=== PATIENT | male | born 1945 | race Caucasian/White ===

== ENCOUNTER 2018-04-11 19:59 | Emergency (ER) | payer MEDICARE ==
[2018-04-11 20:27] VITALS: BP 135/75
--- NOTE | 2018-04-11 20:38 | UC ---
Back Pain HPI - HPI Summary HPI Summary: low back pain no specific injury---has been needing to use a cane for ambulation - History of Current Complaint Chief Complaint: UCBackPain Stated Complaint: BACK PAIN Time Seen by Provider: 04/11/18 20:36 Hx Obtained From: Patient Onset/Duration: Gradual Onset, Lasting Weeks Timing: Constant Pain Intensity: 8 Pain Scale Used: 0-10 Numeric Back Pain: Is Discrete @ Character: Aching, Throbbing, Spasmodic, Stiffness Aggravating Factor(s): Movement, Lifting, Bending Alleviating Factor(s): Nothing - Allergies/Home Medications Allergies/Adverse Reactions: Allergies Allergy/AdvReac Type Severity Reaction Status Date / Time No Known Allergies Allergy Verified 04/11/18 20:27 Home Medications: Home Medications metFORMIN* [Glucophage 500 MG TAB *] 500 mg PO BID 04/11/18 [History Confirmed 04/11/18] PMH/Surg Hx/FS Hx/Imm Hx Previously Healthy: No Endocrine History: Diabetes, Dyslipidemia - Surgical History Surgical History: Yes Surgery Procedure, Year, and Place: cervical spine; rotator cuff right; cancer nose - Family History Known Family History: Positive: None - Social History Occupation: Retired Lives: With Family Alcohol Use: Weekly Alcohol Amount: 5-7 days per week Substance Use Type: None Smoking Status (MU): Former Smoker Amount Used/How Often: one week per year Review of Systems Constitutional: Negative Skin: Negative Eyes: Negative ENT: Negative Respiratory: Negative Cardiovascular: Negative Gastrointestinal: Negative Genitourinary: Negative Motor: Negative Neurovascular: Negative Musculoskeletal: Arthralgia - lumbar back pain Neurological: Negative Psychological: Negative Is Patient Immunocompromised?: No All Other Systems Reviewed And Are Negative: Yes Physical Exam Triage Information Reviewed: Yes Appearance: Well-Appearing, Well-Nourished, Pain Distress Vital Signs: Initial Vital Signs Temp 97.7 F 04/11/18 20:21 Pulse 54 04/11/18 20:21 Resp 18 04/11/18 20:21 BP 135/75 04/11/18 20:21 Pulse Ox 96 04/11/18 20:21 Vital Signs Reviewed: Yes Eye Exam: Normal Eyes: Positive: Conjunctiva Clear ENT Exam: Normal ENT: Positive: Normal ENT inspection, Hearing grossly normal. Negative: Trismus , Muffled voice, Hoarse voice Dental Exam: Normal Neck exam: Normal Neck: Positive: Supple, Nontender Respiratory Exam: Normal Respiratory: Positive: Chest non-tender, Lungs clear, Normal breath sounds, No respiratory distress, No accessory muscle use Cardiovascular Exam: Normal Cardiovascular: Positive: RRR, Pulses Normal, Brisk Capillary Refill Musculoskeletal Exam: Other Musculoskeletal: Positive: ROM Limited @ - movements at waist Neurological Exam: Normal Neurological: Positive: Alert, Muscle Tone Normal Psychological Exam: Normal Skin Exam: Normal Diagnostics - Radiology No standard instances Xray Interpretation: Positive (See Comments) - Patient Name: JACKIE COFFEY Medical Record#: [id number] Ordering Physician: Chio Kam NP Acct.#: [id number] : 1945 Age: 73 Sex: M Location: [facility] Exam Date: 04/11/182046 ADM Status: REG ER Order Information: SP LUMBARSACRAL 4+ VWS Accession Number: [id number] CPT: 41519 Indication: Back pain. 5 views of lumbar spine are reviewed. The vertebral bodies appear normal in height. Disc space narrowing at L2-L3, L3-L4, L4-L5 and L5-S1 is noted. No fracture is identified. IMPRESSION: Degenerative disc disease at L2-L3, L3-L4, L4-L5 and L5 -S1. < Electronically signed by Lisa Howell MD in [place]> 04/11/182116 Dictated By: Lisa Howell MD Dictated Date/Time: 04/11/182116 Transcribed Date/Time: 04/11/182116 Copy to: CC:Carley Becerril MD; Caden Fenton MD; Chio Kam NP [facility] Urgent [facility] Urgent [facility] [address] [address] ph [phone] ph ([phone] ph ( [phone]) 1 of 1 Radiology Interpretation Completed By: Radiologist Back Pain Course/Dx - Course Course Of Treatment: Nsaids, flexeril, core and low back exercise,,follow with pcp - Differential Dx/Diagnosis Provider Diagnoses: Low back pain, DDD Discharge - Sign-Out/Discharge Documenting (check all that apply): Discharge/Admit/Transfer - Discharge Plan Condition: Stable Disposition: HOME Prescriptions: Cyclobenzaprine TAB* [Flexeril 10 MG TAB*] 10 mg PO TID PRN #20 tab PRN Reason: muscle spasm Naproxen [Naproxen 375 mg tab] 375 mg PO BID PRN #30 tablet PRN Reason: Pain Patient Education Materials: Degenerative Disc Disease (ED), Lower Back Exercises (ED) Referrals: Eliceo MARTINEZ,Caden Prasad [Primary Care Provider] - 2 Days - Billing Disposition and Condition Condition: STABLE Disposition: Home
--- NOTE | 2018-04-11 21:21 | RAD ---
Indication: Back pain. 5 views of lumbar spine are reviewed. The vertebral bodies appear normal in height. Disc space narrowing at L2-L3, L3-L4, L4-L5 and L5-S1 is noted. No fracture is identified. IMPRESSION: Degenerative disc disease at L2-L3, L3-L4, L4-L5 and L5-S1.
[2018-04-11] MEDS ORDERED: Cyclobenzaprine TAB* 10 MG PO ONE (21:33)
== END 2018-04-11 21:50 | disposition home or self-care (01) ==
LOC: UCEAST 19:59
DX: M54.5 Low back pain (principal); M51.36 Other intervertebral disc degeneration, lumbar region; M51.37 Other intervertebral disc degeneration, lumbosacral region; E11.9 Type 2 diabetes mellitus without complications; Z79.84 Long term (current) use of oral hypoglycemic drugs; Z85.828 Personal history of other malignant neoplasm of skin; E78.5 Hyperlipidemia, unspecified
CPT/HCPCS: 72110; 99202; A9270-GY; G0463

== ENCOUNTER 2018-06-27 20:35 | Emergency (ER) | payer MEDICARE ==
[2018-06-27] MEDS ORDERED: Acetaminophen TAB* 325 MG PO ONE (21:08)
[2018-06-27] MEDS ORDERED: NS 0.9% 1000 ML* 1,000 ML IV ONE (21:08)
[2018-06-27 21:34] LABS: ABS Basophils 0 10^3/ul (0-0.2); ABS Eosinophils 0.2 10^3/ul (0-0.6); ABS Lymphocytes 0.4 10^3/ul (1.0-4.8); ABS Monocytes 0.4 10^3/ul (0-0.8); ABS Neutrophils 5.7 10^3/ul (1.5-7.7); ABS Nucleated RBC 0 10^3/ul; Eosinophil % 3.6 % (0-6); Hematocrit 39 % (42-52); Hemoglobin 13.6 g/dl (14.0-18.0); Lymphocyte % 6.5 % (25-47); Mean Corpuscular HGB Conc 35 g/dl (31-36); Mean Corpuscular Hemoglobin 32 pg (27-31); Mean Corpuscular Volume 90 fL (80-94); Mean Platelet Volume 8.6 um3 (7.4-10.4); Nucleated Red Blood Cells % 0.1; Platelet Count 149 10^3/ul (150-450); Red Blood Count 4.32 10^6/ul (4.00-5.40); Red Cell Distribution Width 14 % (10.5-15); White Blood Count 6.9 10^3/ul (3.5-10.8)
[2018-06-27 21:53] LABS: EGFR Non-African American 73.5 (>60)
--- NOTE | 2018-06-27 23:31 | ED ---
HPI Febrile Illness - HPI Summary HPI Summary: Patient complains of sudden onset fever of 104 around 8:30pm. Denies any other symptoms. Patient states he started to feel chills, took his temperature and had a fever. Patient had taken ibuprofen at 7:15 PM for chronic neck pain. Medical history is DM, HDL. - History of Current Complaint Chief Complaint: EDFever Time Seen by Provider: 06/27/18 21:06 Hx Obtained From: Patient, Family/Director Operations Broadcast Onset/Duration: Started Hours Ago Timing: Constant Initial Severity: Mild Current Severity: Mild Pain Intensity: 2 Pain Scale Used: 0-10 Numeric Aggravating Factors: Nothing Alleviating Factors: Nothing Associated Signs and Symptoms: Chills - Allergy/Home Medications Allergies/Adverse Reactions: Allergies Allergy/AdvReac Type Severity Reaction Status Date / Time No Known Allergies Allergy Verified 06/27/18 20:45 PMH/Surg Hx/FS Hx/Imm Hx Endocrine/Hematology History: Reports: Hx Diabetes - type II Cardiovascular History: Reports: Hx Hypertension - Cancer History Cancer Type, 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 - Surgical History Surgery Procedure, Year, and Place: cervical spine; rotator cuff right; cancer nose Infectious Disease History: No Infectious Disease History: Denies: Hx Clostridium Difficile, Hx Hepatitis, Hx Human Immunodeficiency Virus (HIV), Hx of Known/Suspected MRSA, Hx Shingles, Hx Tuberculosis, Hx Known/ Suspected VRE, Hx Known/Suspected VRSA, History Other Infectious Disease, Traveled Outside the [place] in Last 30 Days - Family History Known Family History: Positive: None - Social History Alcohol Use: Weekly Alcohol Amount: 5-7 days per week Substance Use Type: Reports: None Smoking Status (MU): Former Smoker Amount Used/How Often: one week per year Review of Systems Positive: Fever, Chills Eyes: Negative ENT: Negative Cardiovascular: Negative Respiratory: Negative Gastrointestinal: Negative Genitourinary: Negative Musculoskeletal: Negative Skin: Negative Neurological: Negative Psychological: Normal All Other Systems Reviewed And Are Negative: Yes Physical Exam Triage Information Reviewed: Yes Vital Signs On Initial Exam: Initial Vitals Temp Pulse Resp BP Pulse Ox 105.3 F 89 18 119/66 95 06/27/18 20:41 06/27/18 20:41 06/27/18 20:41 06/27/18 20:41 06/27/18 20:41 Vital Signs Reviewed: Yes Appearance: Positive: Well-Appearing Skin: Positive: Warm Head/Face: Positive: Normal Head/Face Inspection Eyes: Positive: Normal Neck: Positive: Supple Respiratory/Lung Sounds: Positive: Clear to Auscultation Cardiovascular: Positive: Normal Abdomen Description: Positive: Nontender Musculoskeletal: Positive: Normal Neurological: Positive: Normal Psychiatric: Positive: Normal AVPU Assessment: Alert - Nate Coma Scale Best Eye Response: 4 - Spontaneous Best Motor Response: 6 - Obeys Commands Best Verbal Response: 5 - Oriented Coma Scale Total: 15 Diagnostics - Vital Signs Vital Signs Temp Pulse Resp BP Pulse Ox 06/27/18 20:41 105.3 F 89 18 119/66 95 - Laboratory Lab Results: Lab Results 06/27/18 06/27/18 Range/Units 21:20 21:20 WBC 6.9 (3.5-10.8) 10^3/ul RBC 4.32 (4.00-5.40) 10^6/ul Hgb 13.6 L (14.0-18.0) g/dl Hct 39 L (42-52) % MCV 90 (80-94) fL MCH 32 H (27-31) pg MCHC 35 (31-36) g/dl RDW 14 (10.5-15) % Plt Count 149 L (150-450) 10^3/ul MPV 8.6 (7.4-10.4) um3 Neut % (Auto) 83.2 H (38-83) % Lymph % (Auto) 6.5 L (25-47) % [place] % (Auto) 6.2 (0-7) % Eos % (Auto) 3.6 (0-6) % Baso % (Auto) 0.5 (0-2) % Absolute Neuts (auto) 5.7 (1.5-7.7) 10^3/ul Absolute Lymphs (auto) 0.4 L (1.0-4.8) 10^3/ul Absolute Monos (auto) 0.4 (0-0.8) 10^3/ul Absolute Eos (auto) 0.2 (0-0.6) 10^3/ul Absolute Basos (auto) 0 (0-0.2) 10^3/ul Absolute Nucleated RBC 0 10^3/ul Nucleated RBC % 0.1 Sodium 136 (135-145) mmol/L Potassium 4.0 (3.5-5.0) mmol/L Chloride 102 (101-111) mmol/L Carbon Dioxide 25 (22-32) mmol/L Anion Gap 9 (2-11) mmol/L BUN 23 (6-24) mg/dL Creatinine 1.00 (0.67-1.17) mg/dL Est GFR ( Amer) 88.9 (>60) Est GFR (Non-Af Amer) 73.5 (>60) BUN/Creatinine Ratio 23.0 H (8-20) Glucose 161 H (70-100) mg/dL Calcium 9.4 (8.6-10.3) mg/dL Total Bilirubin 1.00 (0.2-1.0) mg/dL AST 48 H (13-39) U/L ALT 59 H (7-52) U/L Alkaline Phosphatase 94 (34-104) U/L Total Protein 6.5 (6.4-8.9) g/dL Albumin 3.9 (3.2-5.2) g/dL Globulin 2.6 (2-4) g/dL Albumin/Globulin Ratio 1.5 (1-3) Result Diagrams: 06/27/18 21:20 06/27/18 21:20 Lab Statement: Any lab studies that have been ordered have been reviewed, and results considered in the medical decision making process. Course/Dx - Course Course Of Treatment: Patient complains of sudden onset fever of 104 around 8: 30pm. Denies any other symptoms. Patient states he started to feel chills, took his temperature and had a fever. Patient had taken ibuprofen at 7:15 PM for chronic neck pain. Medical history is DM, HDL. Fever controlled. Mildly diminished platelet count, mildly elevated transaminases. Possible ehrlichiosis. Patient started on doxycycline 100 mg. Rx for doxycycline 100 mg twice a day 7 days. Results of ehrliochis and Lyme disease labs will be called into patient and treatment adjusted accordingly. Follow-up with primary care for extended doxycycline treatment if necessary - Diagnoses Provider Diagnoses: Elevated transaminase level, Fever Discharge - Sign-Out/Discharge Documenting (check all that apply): Patient Departure - Discharge Plan Condition: Stable Disposition: HOME Prescriptions: DOXYcycline CAP(*) [DOXYcycline 100MG CAP(*)] 100 mg PO BID 7 Days #14 cap Patient Education Materials: Lyme Disease (ED) Referrals: Eliceo MARTINEZ,Caden Prasad [Primary Care Provider] - Additional Instructions: Take antibiotics as directed. Follow-up with primary care. - Billing Disposition and Condition Condition: STABLE Disposition: Home
[2018-06-28] MEDS ORDERED: DOXYcycline CAP(*) 100 MG PO ONE (00:44)
[2018-06-28 01:44] VITALS: BP 97/60
== END 2018-06-28 01:00 | disposition home or self-care (01) ==
LOC: ED 20:35
DX: R74.0 Nonspecific elevation of levels of transaminase and lactic acid dehydrogenase [LDH] (principal); R50.9 Fever, unspecified; E11.8 Type 2 diabetes mellitus with unspecified complications; Z87.891 Personal history of nicotine dependence
CPT/HCPCS: 36415; 80053; 85025; 86618; 87040; 87798; 96360; 96361; 99284; A9270-GY

== ENCOUNTER 2018-06-28 22:09 | Emergency (ER) | payer MEDICARE ==
--- NOTE | 2018-06-28 23:52 | ED ---
HPI Febrile Illness - HPI Summary HPI Summary: Pt is a 73 year old M presenting to the ED with complaint of a fever that is jumping up and down tonight. The fever was 102 upon arrival, and is now 106. No major MORATAYA, coughing, CP, vomiting, rashes. Pt had a mild MORATAYA this morning. - History of Current Complaint Chief Complaint: EDFever Time Seen by Provider: 06/28/18 23:42 Hx Obtained From: Patient Onset/Duration: Started Days Ago - yesterday, Still Present Timing: Constant Initial Severity: Moderate Current Severity: Moderate Pain Intensity: 5 Pain Scale Used: 0-10 Numeric - Allergy/Home Medications Allergies/Adverse Reactions: Allergies Allergy/AdvReac Type Severity Reaction Status Date / Time No Known Allergies Allergy Verified 06/28/18 22:19 PMH/Surg Hx/FS Hx/Imm Hx Previously Healthy: No Endocrine/Hematology History: Reports: Hx Diabetes - type II Cardiovascular History: Reports: Hx Hypertension - Cancer History Cancer Type, 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 - Surgical History Surgery Procedure, Year, and Place: cervical spine; rotator cuff right; cancer nose Infectious Disease History: No Infectious Disease History: Denies: Hx Clostridium Difficile, Hx Hepatitis, Hx Human Immunodeficiency Virus (HIV), Hx of Known/Suspected MRSA, Hx Shingles, Hx Tuberculosis, Hx Known/ Suspected VRE, Hx Known/Suspected VRSA, History Other Infectious Disease, Traveled Outside the [place] in Last 30 Days - Family History Known Family History: Positive: None - Social History Lives: With Family Alcohol Use: Weekly Alcohol Amount: 5-7 days per week Substance Use Type: Reports: None Hx Tobacco Use: Yes Smoking Status (MU): Former Smoker Amount Used/How Often: one week per year Review of Systems Positive: Fever Negative: Chest Pain Negative: Cough Negative: Vomiting Negative: Rash Positive: Headache - mild this morning All Other Systems Reviewed And Are Negative: Yes Physical Exam - Summary Physical Exam Summary: Appearance: Well-appearing, Well-nourished, lying in bed comfortable Skin: Warm, dry, no obvious rash Eyes: sclera anicteric, no conjunctival pallor ENT: mucous membranes moist Neck: deferred Respiratory: No signs of respiratory distress Cardiovascular: Appears well perfused, pulses are nml Abdomen: deferred Musculoskeletal: Moving all 4 extremities without obvious discomfort Neurological: Awake and alert, mentation is normal, speech is fluent and appropriate Psychiatric: affect is normal, does not appear anxious or depressed Triage Information Reviewed: Yes Vital Signs On Initial Exam: Initial Vitals Temp Pulse Resp BP Pulse Ox 103.8 F 90 18 138/76 94 06/28/18 22:17 06/28/18 22:17 06/28/18 22:17 06/28/18 22:17 06/28/18 22:17 Vital Signs Reviewed: Yes Diagnostics - Vital Signs Vital Signs Temp Pulse Resp BP Pulse Ox 06/28/18 22:17 103.8 F 90 18 138/76 94 - Laboratory Result Diagrams: 06/29/18 00:05 06/29/18 00:05 Lab Statement: Any lab studies that have been ordered have been reviewed, and results considered in the medical decision making process. Course/Dx - Diagnoses Provider Diagnoses: Fever Discharge - Sign-Out/Discharge Documenting (check all that apply): Patient Departure - Discharge Plan Condition: Good Disposition: HOME Patient Education Materials: Fever in Adults (ED) Referrals: Eliceo MARTINEZ,Caden Prasad [Primary Care Provider] - - Billing Disposition and Condition Condition: GOOD Disposition: Home - Attestation Statements Document Initiated by Scribe: Yes Documenting Scribe: Lakesha Guerra Provider For Whom Scribe is Documenting (Include Credential): Andres Koenig MD. Scribe Attestation: Lakesha Alfaro, cathied for Andres Koenig MD. on 06/30/18 at 1836. Scribe Documentation Reviewed: Yes Provider Attestation: The documentation as recorded by the scribeLakesha accurately reflects the service I personally performed and the decisions made by , Andres Koenig MD. Consult Consult: Andres Koenig MD, spoke with Gui Rose at approximately 2345, patient will be admitted to [facility].
[2018-06-29 00:14] LABS: ABS Basophils 0.1 10^3/ul (0-0.2); ABS Eosinophils 0.2 10^3/ul (0-0.6); ABS Lymphocytes 0.3 10^3/ul (1.0-4.8); ABS Monocytes 0.2 10^3/ul (0-0.8); ABS Neutrophils 4.4 10^3/ul (1.5-7.7); ABS Nucleated RBC 0 10^3/ul; Eosinophil % 4.7 % (0-6); Hematocrit 35 % (42-52); Hemoglobin 12.1 g/dl (14.0-18.0); Lymphocyte % 5.6 % (25-47); Mean Corpuscular HGB Conc 35 g/dl (31-36); Mean Corpuscular Hemoglobin 31 pg (27-31); Mean Corpuscular Volume 89 fL (80-94); Mean Platelet Volume 8.6 um3 (7.4-10.4); Nucleated Red Blood Cells % 0; Platelet Count 127 10^3/ul (150-450); Red Blood Count 3.91 10^6/ul (4.00-5.40); Red Cell Distribution Width 14 % (10.5-15); White Blood Count 5.3 10^3/ul (3.5-10.8)
[2018-06-29 00:33] LABS: EGFR Non-African American 82.9 (>60)
[2018-06-29] MEDS ORDERED: cefTRIAXone VIAL(*) 1,000 MG VIAL ONE (04:43)
[2018-06-29 06:16] VITALS: BP 140/80
== END 2018-06-29 05:05 | disposition home or self-care (01) ==
LOC: ED 22:09
DX: R50.9 Fever, unspecified (principal); R51 Headache; Z87.891 Personal history of nicotine dependence
CPT/HCPCS: 36415; 80053; 85025; 85730; 87040; 99284; J0696

== ENCOUNTER 2019-04-13 15:45 | Emergency (ER) | payer MEDICARE ==
--- NOTE | 2019-04-13 15:59 | UC ---
Lower Extremity/Ankle HPI - HPI Summary HPI Summary: 74 yo male presents accompanied by s/p fall. He tells me that he was working on his boat today around 1100 when he slipped due to water on the dock and fell onto his right thigh and right arm. Did not hit his head or have LOC - witnessed by . He sustained some abrasions that he cleaned and applied band- aids to. Since that time he rested on the couch and applied ice to his leg. He developed some bruising and swelling to the thigh that concerned his who convinced him to come to . His drove and states pt fell asleep on the way here, which was very abnormal for him. Currently he admits feeling tired and dizzy. He is ambulatory with a limp and cane assistance. States that he would not be here unless his made him. Denies headache, SOB, chest pain, abdominal pain, n/v. He takes a daily aspirin and is on plavix for prior cardiac stent placement. - History of Current Complaint Stated Complaint: RT THIGH INJURY Time Seen by Provider: 04/13/19 15:59 Hx Obtained From: Patient Onset/Duration: Sudden Onset Severity Initially: Moderate Severity Currently: Moderate Pain Intensity: 5 Pain Scale Used: 0-10 Numeric - Allergies/Home Medications Allergies/Adverse Reactions: Allergies Allergy/AdvReac Type Severity Reaction Status Date / Time No Known Allergies Allergy Verified 04/13/19 15:59 Home Medications: Home Medications Acetaminophen [Acetaminophen Extra Strength] 1,000 mg PO Q12HR PRN 04/13/19 [ History Confirmed 04/13/19] Atorvastatin* [Lipitor*] 80 mg PO 1700 04/13/19 [History Confirmed 04/13/19] Clopidogrel TAB* [Plavix TAB*] 75 mg PO DAILY 04/13/19 [History Confirmed ] Nitroglycerin TAB 0.4 MG* 0.4 mg SL Q5M PRN 04/13/19 [History Confirmed 04/13/19 ] PMH/Surg Hx/FS Hx/Imm Hx Endocrine History: Diabetes Cardiovascular History: Cardiac Disease, Myocardial Infarction - Surgical History Surgical History: Yes Surgery Procedure, Year, and Place: cervical spine; rotator cuff right; cancer nose - Family History Known Family History: Positive: None - Social History Occupation: Retired Lives: With Family Alcohol Use: Weekly Alcohol Amount: 5-7 days per week Substance Use Type: None Smoking Status (MU): Former Smoker Amount Used/How Often: one week per year Review of Systems All Other Systems Reviewed And Are Negative: Yes Constitutional: Positive: Fatigue Skin: Positive: Other - Abrasion and ecchymosis right thigh Eyes: Positive: Negative ENT: Positive: Negative Respiratory: Positive: Negative Cardiovascular: Positive: Negative Gastrointestinal: Positive: Negative Genitourinary: Positive: Negative Motor: Positive: Negative Neurovascular: Positive: Negative Musculoskeletal: Positive: Other: - Right thigh pain Neurological: Positive: Other - Dizziness Psychological: Positive: Negative Physical Exam - Summary Physical Exam Summary: GENERAL: NAD. WDWN. SKIN: RIGHT THIGH: Superficial abrasion to lateral aspect with mild ecchymosis that is moderately firm and edematous. Right duarte: superficial abrasion - clean appearing. HEENT: Head: AT/NC Eyes: PERRLA. EOM intact. NECK: Supple. Nontender. CHEST: CTAB. No r/r/w. No accessory muscle use. Breathing comfortably and in no distress. CV: RRR. Pulses intact. Brisk cap refill. Pulses intact popliteal and DP/PT b/ l. ABDOMEN: Soft. NTTP. No distention or guarding. Bowel sounds present. No ecchymosis noted. MSK: FROM and 5/5 strength throughout. Mild TTP at lateral right thigh. NEURO: Alert. Sensations intact L3-S1 B/L LEs PSYCH: Age appropriate behavior. Triage Information Reviewed: Yes Vital Signs: Vital Signs: Temp Pulse Resp BP Pulse Ox 98.4 F 71 18 76/54 100 04/13/19 16:02 04/13/19 16:02 04/13/19 16:02 04/13/19 16:02 04/13/19 16:02 Vital Signs Reviewed: Yes Lower Extremity Course/Dx - Course Course Of Treatment: Presenting BP was hypotensive at 76/54 and repeat manual BPs were similar - pt was symptomatic with dizziness and fatigue. At that time I discussed transfer to the ED by ambulance, but pt declined and wished to go home. I discussed with him the risks of this including and worsening condition and he continued to decline. I informed him that I would do an evaluation in the to the best of my ability given the limited resources and he agreed to this. At this time I do not believe his hypotension is related to an internal hemorrhage as he reports only falling onto his right thigh and has a non-distened and non-tender abdomen/flank without ecchymosis. EKbpm NSR. No ST changes as read by Dr. eLster. POC glucose 293. Pt and admit that he "never" checks his sugars except for when the doctor checks them at routine follow ups and he has no idea his average. XR: IMPRESSION: NO EVIDENCE FOR FRACTURE. Upon returning from XR in a wheelchair, pt became diaphoretic, pale, and said he felt lightheaded. He was taken to Room 4 and transported to a stretcher. BP was found to be 90s/60s with a pulse hovering around 40bpm (35bpm-45bpm). He pulse was felt to have an irregularity, thus another EKG was ordered. 2nd EKbpm sinus eve with sinuglar PVC. No ST changes as read by Dr. Lester. Discussed with pt going to the ED at this point and he was agreeable to this. Two IVs were started with NS wide open for symptomatic hypotension and bradycardia. I discussed the case with Trevon VERMA in the ED. EMS arrived around 1700 and were interviewing the pt until departing facility at around 1720. Apparently, upon transferring the pt to EMS stretcher, the EMT noticed an abdominal mass that was thought to be a hernia and asked that I examine the hernia before transfer as pt and with him have never noticed this before. I examined the area and it was NTTP and without ecchymosis or erythema. No pulsatile mass appreciated, but there was an obvious abdominal wall hernia when pt did a 'sit-up' maneuver. EMT asked if [facility] was aware of this and I asked "of the hernia?" and EMT replied "nevermind" and continued their assessment of the pt. I do not believe this resembles an abdominal aortic injury. Called charge nurse Hyun in the ED and informed her of the above. Pt left in stable condition and was more alert. Discharge BP was 99/64 with HR 53 taken by myself. He had no chest pain, SOB, or syncopal episodes while in the . - Differential Dx/Diagnosis Provider Diagnosis: Hypotension, Bradycardia, Fall, Contusion of right thigh Discharge - Sign-Out/Discharge Documenting (check all that apply): Patient Departure All imaging exams completed and their final reports reviewed: Yes - Discharge Plan Condition: Stable Disposition: TRANS HIGHER LVL OF CARE FAC Referrals: Eliceo MARTINEZ,Caden Prasad [Primary Care Provider] - - Billing Disposition and Condition Condition: STABLE Disposition: Trans Higher Lvl of Care Fac
[2019-04-13] MEDS ORDERED: NS 0.9% 1000 ML** 1,000 ML IV ONE ×2 (16:51→17:01)
[2019-04-13 16:59] VITALS: BP 101/66
== END 2019-04-13 17:15 | disposition short-term general hospital (02) ==
LOC: UCEAST 15:45
DX: S70.11XA Contusion of right thigh, initial encounter (principal); W01.0XXA Fall on same level from slipping, tripping and stumbling without subsequent striking against object, initial encounter; Y92.89 Other specified places as the place of occurrence of the external cause; I95.9 Hypotension, unspecified; R00.1 Bradycardia, unspecified; E11.9 Type 2 diabetes mellitus without complications; Z79.02 Long term (current) use of antithrombotics/antiplatelets; Z79.82 Long term (current) use of aspirin; Z95.5 Presence of coronary angioplasty implant and graft; Z87.891 Personal history of nicotine dependence; K80.80 Other cholelithiasis without obstruction; K40.90 Unilateral inguinal hernia, without obstruction or gangrene, not specified as recurrent
CPT/HCPCS: 93005; 99213; G0463

== ENCOUNTER 2019-04-13 17:35 | Emergency (ER) | payer MEDICARE ==
[2019-04-13] MEDS ORDERED: Tetan/Diph/Pertus SYR(Tdap)* 0.5 ML SYR(BOOSTRIX) use SYR IM ONE (18:15)
[2019-04-13] MEDS ORDERED: NS 0.9% 1000 ML** 1,000 ML IV ONE (18:15)
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
[2019-04-13 18:33] LABS: ABS Eosinophils 0.2 10^3/ul (0-0.6); ABS Monocytes 0.6 10^3/ul (0-0.8); Eosinophil % 1.9 %; Hematocrit 35 % (42-52); Hemoglobin 11.9 g/dL (14.0-18.0); Lymphocyte % 11.2 %; Mean Corpuscular HGB Conc 34 g/dL (31-36); Mean Corpuscular Hemoglobin 31 pg (27-31); Mean Corpuscular Volume 92 fL (80-94); Mean Platelet Volume 9.3 fL (7.4-10.4); Platelet Count 181 10^3/uL (150-450); Red Blood Count 3.79 10^6 /uL (4.18-5.48); Red Cell Distribution Width 14 % (10-15); White Blood Count 8.8 10^3/uL (3.5-10.8)
[2019-04-13 18:44] LABS: Activated Partial Thrombo Time 27.6 seconds (26.0-38.0); INR 1.15 (0.82-1.09)
[2019-04-13 19:13] LABS: Albumin 3.6 g/dL (3.2-5.2); BUN/Creatinine Ratio 28.6 (8-20); Calcium 8.6 mg/dL (8.6-10.3); EGFR African American 98.8 (>60); EGFR Non-African American 81.7 (>60); Globulin 1.8 g/dL (2-4); Potassium 4.1 mmol/L (3.5-5.0); Total Bilirubin 0.7 mg/dL (0.2-1.0); Total Protein 5.4 g/dL (6.4-8.9)
[2019-04-13] MEDS ORDERED: Iodixanol* (CONTRAST) 320 MG/ML 100 ML SDV IV ONE (19:42)
[2019-04-13] MEDS ORDERED: oxyCODONE/Acetamin 5/325 MG* TAB PO ONE (20:54)
[2019-04-13 21:16] VITALS: BP 124/77
== END 2019-04-13 21:15 | disposition home or self-care (01) ==
LOC: ED 17:35
DX: S70.11XA Contusion of right thigh, initial encounter (principal); K80.80 Other cholelithiasis without obstruction; K40.90 Unilateral inguinal hernia, without obstruction or gangrene, not specified as recurrent; W19.XXXA Unspecified fall, initial encounter; Y92.9 Unspecified place or not applicable
CPT/HCPCS: 36415; 71045; 74177; 80053; 83605; 84484; 85025; 85610; 85730; 86850; 86900; 86901; 90471; 90715; 93005; 99284; A9270-GY; Q9967